=== PATIENT | male | born 1995 | race Caucasian/White ===

== ENCOUNTER 2019-09-28 09:37 | Emergency (ER) | payer OTHER ==
[~2019-09-28] VITALS: Ht 188 cm; Wt 90.7 kg
[~2019-09-28 09:37] MED LIST: AZIT200SU PO; CEPH250SUA PO; CLOT1TC TOP; CODACEE120 PO; FLORIDE CHEW; HYDACE5 PO; IBUP600 PO; KETO15TC TP; NYSTATIN1 EAC1 MC; PROCODE120 PO; RXCEPH250S PO; RXCODACESY PO; SULTRIDS PO; SULTRIEL PO; [UNRECOGNIZED DRUG - REMARK]
[2019-09-28] MEDS ORDERED: CORTISONE60 GM TOP (10:23)
[2019-09-28] MEDS ORDERED: Ketoconazole120 ML TOP (10:23)
== END 2019-09-28 10:33 | disposition home or self-care (01) ==
LOC: ER 09:37
DX: L40.9 Psoriasis, unspecified (principal); B37.9 Candidiasis, unspecified; Z88.0 Allergy status to penicillin; Z88.1 Allergy status to other antibiotic agents
CPT/HCPCS: 99283